=== PATIENT | male | born 1990 | race Hispanic/Latino ===

== ENCOUNTER 2017-07-31 12:53 | Emergency (ER) | payer SELFPAY ==
[~2017-07-31] VITALS: Ht 160 cm; Wt 55.0 kg
[~2017-07-31 12:53] MED LIST: CORTISPORIN OTI10 ML AD; MOTRIN800 MG PO; NAPROSYN500 MG PO; NO
[2017-07-31] MEDS ORDERED: CIPROFLOXACN750 MG PO (14:39)
[2017-07-31 14:45] VITALS: BP 118/76
== END 2017-07-31 14:40 | disposition home or self-care (01) | DRG 605 ==
LOC: ED 12:53
PROC: 0HCGXZZ Extirpation of Matter from Left Hand Skin, External Approach (ICD-10-PCS; principal; 2017-07-31)
DX: S60.552A Superficial foreign body of left hand, initial encounter (principal); W45.8XXA Other foreign body or object entering through skin, initial encounter; Y93.89 Activity, other specified; Y92.009 Unspecified place in unspecified non-institutional (private) residence as the place of occurrence of the external cause